=== PATIENT | male | born 1970 | race Caucasian/White ===

== ENCOUNTER 2023-10-12 08:46 | Day surgery (SDC) | payer OTHER ==
[2023-10-08 14:12] LABS: BASOPHILS # (AUTO) 0.1 X10'3 (0-0.2); BASOPHILS % (AUTO) 0.7 % (0-1); EOSINOPHILS # (AUTO) 0.3 X10'3 (0-0.9); EOSINOPHILS % (AUTO) 3.8 % (0-6); LYMPHOCYTES # (AUTO) 2.2 X10'3 (1.1-4.8); LYMPHOCYTES % (AUTO) 24.6 % (21-51); MEAN CORPUSCULAR HEMOGLOBIN 30.5 PG (27.0-31.0); MEAN CORPUSCULAR HGB CONC 33.8 g/dL (33.0-36.5); MEAN CORPUSCULAR VOLUME 90.3 FL (78-98); MONOCYTES # (AUTO) 0.8 X10'3 (0-0.9); MONOCYTES % (AUTO) 9.2 % (2-12); NEUTROPHILS # (AUTO) 5.6 X10'3 (1.8-7.7); NEUTROPHILS % (AUTO) 61.7 % (42-75); PRE OP HEMATOCRIT 47.4 % (42.0-52.0); PRE OP PLATELET COUNT 230 X10'3 (140-440); PRE OP WHITE BLOOD COUNT 9.1 10'3 (4.8-10.8); RED BLOOD COUNT 5.26 X10'6 (4.70-6.10); RED CELL DISTRIBUTION WIDTH 13.7 % (11.5-14.5)
[2023-10-08 14:29] LABS: ALBUMIN 4.1 G/DL (3.4-5.0); ALBUMIN/GLOBULIN RATIO 1.2 (1.1-1.5); ALKALINE PHOSPHATASE 64 IU/L (46-116); BLOOD UREA NITROGEN 29 MG/DL (7-18); BUN/CREATININE RATIO 25.7 (10.0-20.0); CALCIUM 8.9 MG/DL (8.5-10.1); CHLORIDE 105 MMOL/L (99-107); CREATININE 1.13 MG/DL (0.60-1.10); PRE OP ALT 43 U/L (30-65); PRE OP ANION GAP 8 (8-16); PRE OP AST 17 U/L (10-37); PRE OP BILIRUB, TOTAL 0.4 MG/DL (0.0-1.0); PRE OP GLUCOSE 100 MG/DL (70-104); PRE OP SODIUM 140 MMOL/L (135-145); TOTAL CARBON DIOXIDE 27.5 MMOL/L (24-32); TOTAL PROTEIN 7.6 G/DL (6.4-8.2); eGFR 68 ML/MIN
[~2023-10-12] VITALS: Ht 170.2 cm; Wt 83.9 kg
[2023-10-12] VITALS (16 sets, daily range): BP systolic 111–137; BP diastolic 60–87; PULSE 55–84; RESP 16–26; TEMP 98.1; O2SAT 93–100
[~2023-10-12 08:46] MED LIST: LISI10TA27 PO
[2023-10-12] MEDS: cefazolin 2gm/D5W 100mL 100 ML IV ONE (09:19)
[2023-10-12] MEDS: famotidine 20mg tablet PO ONE (09:20)
[2023-10-12] MEDS: ringers solution, lacted 1,000 ML IV SCH (09:21)
[2023-10-12] MEDS ORDERED: enalaprilat dihydrate 2.5mg/2ml vial IV PRN (09:35)
[2023-10-12] MEDS ORDERED: ondansetron/PF 4mg/2ml inj IV PRN (09:35)
[2023-10-12] MEDS ORDERED: morphine 4 MG/ML inj SYRINge IV PRN (09:35)
[2023-10-12] MEDS ORDERED: ringers solution, lacted 1,000 ML IV SCH (09:35)
[2023-10-12] MEDS ORDERED: morphine 2 MG/ML inj. syringe IV PRN (09:35)
[2023-10-12] MEDS ORDERED: meperidine/PF 25mg/ml syringe IV PRN ×3 (09:35)
[2023-10-12] MEDS ORDERED: labetalol 20mg/4ml (5mg/ml) syringe IV PRN (09:35)
[2023-10-12] MEDS ORDERED: proCHLORperazine 10 MG/2 ml inj IV PRN (09:35)
[2023-10-12] MEDS ORDERED: LIDOcaine 1% (10mg/ml)w/preservative inj. 20ml MDV ONE (10:59)
[2023-10-12] MEDS ORDERED: BUPIVAcaine/PF 2.5mg/ml (0.25%) 10ml vial ONE (11:00)
[2023-10-12] MEDS ORDERED: sevoflurane 250ml liquid IH ONE (11:06)
[2023-10-12] MEDS ORDERED: fentaNYL/PF 50MCG/1 ML 2ML syringe ONE (11:18)
[2023-10-12] MEDS ORDERED: midazolam 1 mg/ML 2ml injection ONE (11:18)
[2023-10-12] MEDS ORDERED: propofol inj 20 ML IV ONE (11:24)
[2023-10-12] MEDS ORDERED: LIDOcaine 2% (20mg/ml) 5ml vial ONE (11:24)
[2023-10-12] MEDS ORDERED: rocuronium 10mg/ml inj IV ONE (11:24)
[2023-10-12] MEDS ORDERED: acetaminophen 1,000mg/100ml IV 100 ML IV ONE (11:43)
[2023-10-12] MEDS ORDERED: ondansetron/PF 4mg/2ml inj ONE (11:43)
[2023-10-12] MEDS ORDERED: meperidine/PF 25mg/ml syringe ONE (11:44)
[2023-10-12] MEDS: BUPIVAcaine/PF 2.5mg/ml (0.25%) 10ml vial IJ ONE (11:53)
[2023-10-12] MEDS ORDERED: ketorolac trometh. 30mg/ml inj. ONE (12:35)
[2023-10-12] MEDS ORDERED: HYDROcodone/acetaminophen 5mg/325mg tablet PO PRN (13:10)
== END 2023-10-12 15:38 | disposition home or self-care (01) ==
LOC: PRE-OP 08:46
PROVIDERS: ATTEND Surgery
DX: K40.20 Bilateral inguinal hernia, without obstruction or gangrene, not specified as recurrent (principal); K42.9 Umbilical hernia without obstruction or gangrene; Z79.899 Other long term (current) drug therapy; Z88.8 Allergy status to other drugs, medicaments and biological substances
CPT/HCPCS: 36415; 49591; 49650; 80053; 82948; 85025; 93005; C1781; J0131; J0690; J1100; J1885; J2175; J2250; J2405; J2704; J2710; J3010; J3490; J7030; J7120; S2900; Z7506; Z7508; Z7512; A4215; A4615; A4618; A6250